=== PATIENT | female | born 1995 | race African-American/Black ===

== ENCOUNTER 2016-10-09 13:44 | Emergency (ER) | payer SELFPAY ==
[~2016-10-09] VITALS: Ht 147.3 cm; Wt 75.0 kg
[~2016-10-09 13:44] MED LIST: AMOX875T PO
[2016-10-09 13:46] VITALS: BP 120/74; PULSE 90; RESP 16; TEMP 99.7; O2SAT 96
[2016-10-09 14:30] LABS: BACTERIA, URINE OCC /hpf; BLOOD, URINE NEG (NEG); COMMENT (UR) CULTURE INDICATED; CULTURE IF INDICATED CULTURE INDICATED; GLUCOSE,URINE NEG (NEG); KETONE, URINE NEG (NEG); MUCUS URINE MANY /lpf (OCC); NITRITE,URINE NEG (NEG); PH, URINE 5.5 (5.0-8.5); SQUAMOUS EPITHELIAL CELL URINE 7 /hpf (0-5); URINE COLOR YELLOW (YELLW/STRAW)
[2016-10-09] MEDS ORDERED: METR-1 PO (14:50)
[2016-10-09] MEDS ORDERED: DOXY100C PO (14:50)
--- NOTE | 2016-10-09 14:56 | PD ---
HPI . Vaginal pain Chief Complaint: Complaint Time Seen by Provider: 14:39 Travel History International Travel<30 days: No Contact w/Intl Traveler<30days: No Traveled to known affect area: No History of Present Illness HPI Patient presents with a three-day history of dysuria, vaginal discomfort and discharge. She denies fever. She denies vomiting or diarrhea. She denies change in appetite. PFSH Past Medical History Medical History: Denies Significant Hx Diminished Hearing: No Tetanus Vaccination: < 5 Years ?: Unknown LMP: 08/2016 : 1 Para: 0 : 1 Past Surgical History Gynecologic Surgery: Yes (incomplete ) Social History Alcohol Use: Yes (OCCASIONALLY) Tobacco Use: Yes (OCCASIONALLY) Substance Use: Yes (MARIJUANA) Allergies-Medications (Allergen,Severity, Reaction): Coded Allergies: No Known Allergies (Unverified , 10/09/16) Reported Meds & Prescriptions Reported Meds & Active Scripts Active No Active Prescriptions or Reported Medications Review of Systems Except as stated in HPI: all other systems reviewed are Neg General / Constitutional: No: Fever, Chills Gastrointestinal: No: Nausea, Vomiting, Diarrhea, Abdominal Pain Genitourinary: Positive: Dysuria, Discharge, No: Pelvic Pain, Dysmenorrhea Physical Exam Narrative GENERAL: Healthy-appearing young woman in no acute distress SKIN: Warm and dry. HEAD: Atraumatic. Normocephalic. EYES: Pupils equal and round. ENT: No nasal bleeding or discharge. Mucous membranes pink and moist. NECK: Trachea midline. CARDIOVASCULAR: Regular rate and rhythm. RESPIRATORY: No accessory muscle use. GASTROINTESTINAL: Abdomen soft, non-tender, nondistended. : She has a yellow purulent discharge all over her external genitalia. She does have bilateral adnexal tenderness and cervical motion tenderness. MUSCULOSKELETAL: No obvious deformities. No edema. NEUROLOGICAL: Awake and alert. No obvious cranial nerve deficits. Motor grossly within normal limits. Normal speech. PSYCHIATRIC: Appropriate mood and affect; insight and judgment normal. Data Data Last Documented VS Vital Signs Date Time Temp Pulse Resp B/P Pulse Ox O2 Delivery O2 Flow Rate FiO2 10/09/16 14:39 16 10/09/16 13:46 99.7 90 120/74 96 Room Air Orders Urinalysis - C+S If Indicated (10/09/16 13:51) Ed Urine Pregnancytest Poc (10/09/16 13:51) Urine Culture (10/09/16 13:57) Gc And Chlamydia Pcr (10/09/16 14:46) Wet Prep Profile (10/09/16 14:46) Rocephin 250mg Vial Im X 1 (10/09/16 15:00) Lidocaine 1% Inj (50 Ml) (Xylocaine 1% I (10/09/16 15:00) Labs Laboratory Tests Test 10/09/16 13:57 Urine Color YELLOW Urine Turbidity HAZY Urine pH 5.5 Urine Specific [place] 1.035 Urine Protein 30 mg/dL Urine Glucose (UA) NEG mg/dL Urine Ketones NEG mg/dL Urine Occult Blood NEG Urine Nitrite NEG Urine Bilirubin NEG Urine Urobilinogen 2.0 MG/DL Urine Leukocyte Esterase LARGE Urine RBC 8 /hpf Urine WBC 26 /hpf Urine Squamous Epithelial 7 /hpf Cells Urine Bacteria OCC /hpf Urine Mucus MANY /lpf Microscopic Urinalysis Comment CULTURE INDICATED MDM Medical Decision Making Medical Screen Exam Complete: Yes Emergency Medical Condition: Yes Differential Diagnosis Differential diagnosis includes but is not limited to UTI, pyelonephritis, yeast infection, bacterial vaginosis, PID Narrative Course Patient presents with about a 3 day history of dysuria and vaginal discharge. On exam, she has gonorrhea. That is, she has a purulent discharge. She will be covered for both gonorrhea and chlamydia as well as bacterial vaginosis. Diagnosis Primary Impression: Pelvic inflammatory disease Patient Instructions: General Instructions, Pelvic Inflammatory Disease (ED) Med/Other Pt SpecificInfo: Prescription(s) given Scripts Metronidazole (Flagyl)500 Mg [id number] Mg PO twice a day #10 TAB Ref 0 Prov:Radha Gay MD 10/09/16 Doxycycline Hyclate 100 Mg [id number] Mg PO BID 10 Days Ref 0 Prov:Radha Gay MD 10/09/16 Disposition: 01 DISCHARGE HOME Condition: Stable Radha Gay MD Oct 09, 2016 14:56
[2016-10-09] MEDS ORDERED: cefTRIAXone 250 MG VIAL IM ONE (15:00)
[2016-10-09] MEDS ORDERED: LIDOCAINE HCL 1% 50 ML VIAL IM ONE (15:00)
[2016-10-09 15:30] VITALS: BP 120/71; TEMP 98.1
[2016-10-09 17:20] LABS: CHLAMYDIA PCR NOT DETECTED (NOT DETECT); NEISSERIA PCR NOT DETECTED (NOT DETECT)
== END 2016-10-09 15:30 | disposition home or self-care (01) ==
LOC: NEPE 13:44
DX: N73.9 Female pelvic inflammatory disease, unspecified (principal)
CPT/HCPCS: 81001; 84703; 87086; 87210; 87491; 87591; 96372; 99283; J0696

== ENCOUNTER 2016-10-12 20:00 | Emergency (ER) | payer SELFPAY ==
[~2016-10-12] VITALS: Ht 147.3 cm; Wt 75.0 kg
[~2016-10-12 20:00] MED LIST changes: -AMOX875T PO; +DOXY100C PO; +METR-1 PO
[2016-10-12 20:01] VITALS: BP 132/91; PULSE 69; RESP 16; TEMP 98.6; O2SAT 96
--- NOTE | 2016-10-13 00:15 | PD ---
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 Patient was in the emergency room 4 days ago for vaginal discharge and was diagnosed with PID and treated and sent home on Flagyl and doxycycline. Patient says that she's been taking those medications but then yesterday noticed the sores which are painful. Last unprotected sex was a week and a half ago. No history of STDs in the past. The lab results from her vaginal swabs were reviewed from 4 days ago. GC and chlamydia was negative and urine culture grew mixed cristian. [facility] Past Medical History Narrative Medical List of her past medical history as reviewed from the nursing note. Medical History: Denies Significant Hx Diminished Hearing: No ?: Unknown LMP: 08/24 : 1 Para: 0 : 1 Past Surgical History Surgical History: No Previous Surgery Gynecologic Surgery: Yes (incomplete ) Social History Alcohol Use: Yes (OCCASIONALLY) Tobacco Use: Yes (OCCASIONALLY) Substance Use: Yes (MARIJUANA) Allergies-Medications (Allergen,Severity, Reaction): Coded Allergies: No Known Allergies (Unverified , 10/12/16) Comments List of allergies reviewed from the nursing note. Reported Meds & Prescriptions Reported Meds & Active Scripts Active Acyclovir 800 Mg Tab 800 Mg PO 5 TIMES A DAY 7 Days Flagyl (Metronidazole) 500 Mg Tab 500 Mg PO TWICE A DAY Doxycycline Hyclate 100 Mg Cap 100 Mg PO BID 10 Days Narrative Medication List of her home medications reviewed from the nursing note. Review of Systems Except as stated in HPI: all other systems reviewed are Neg Physical Exam Narrative GENERAL: Awake, alert, no obvious distress SKIN: Warm and dry. HEAD: Atraumatic. Normocephalic. EYES: Pupils equal and round. No scleral icterus. No injection or drainage. ENT: No nasal bleeding or discharge. Mucous membranes pink and moist. NECK: Trachea midline. No JVD. CARDIOVASCULAR: Regular rate and rhythm. No murmur appreciated. RESPIRATORY: No accessory muscle use. Clear to auscultation. Breath sounds equal bilaterally. GASTROINTESTINAL: Abdomen soft, non-tender, nondistended. Hepatic and splenic margins not palpable. : External genital inspection was done. Patient has significant multiple vesicular lesions on the vulva and the labia. These are tender to touch. Some of them are deroofed. There is thick mucous discharge from the vaginal introitus. MUSCULOSKELETAL: No obvious deformities. No clubbing. No cyanosis. No edema. NEUROLOGICAL: Awake and alert. No obvious cranial nerve deficits. Motor grossly within normal limits. Normal speech. PSYCHIATRIC: Appropriate mood and affect; insight and judgment normal. Data Data Last Documented VS Vital Signs Date Time Temp Pulse Resp B/P Pulse Ox O2 Delivery O2 Flow Rate FiO2 10/13/16 02:17 98.2 74 16 151/62 99 10/12/16 20:01 Room Air Orders Urinalysis - C+S If Indicated (10/13/16 00:30) Ed Urine Pregnancytest Poc (10/13/16 00:30) Urine Culture (10/13/16 00:30) Acyclovir (Zovirax) (10/13/16 01:30) Labs Laboratory Tests Test 10/13/16 00:30 Urine Color YELLOW Urine Turbidity HAZY Urine pH 5.5 Urine Specific [place] 1.030 Urine Protein TRACE mg/dL Urine Glucose (UA) NEG mg/dL Urine Ketones TRACE mg/dL Urine Occult Blood SMALL Urine Nitrite NEG Urine Bilirubin NEG Urine Urobilinogen LESS THAN 2.0 MG/DL Urine Leukocyte Esterase LARGE Urine RBC 21 /hpf Urine WBC 20 /hpf Urine Squamous Epithelial 9 /hpf Cells Urine Mucus FEW /lpf Microscopic Urinalysis Comment CULTURE INDICATED MDM Medical Decision Making Medical Screen Exam Complete: Yes Emergency Medical Condition: Yes Medical Record Reviewed: Yes Differential Diagnosis Herpes genitalis Narrative Course 2:16 AM I decided not to repeat the vaginal exam by speculum since she had one done 4 days ago and she has not been sexually active since then. She's been given by mouth acyclovir and a prescription to go home with. I would like to wait for the urine culture before I declare today UTI since her last UA had similar result but they urine culture was mixed cristian/contaminant. Patient will be discharged home. Procedures EKG Prior to Arrival: No Diagnosis Primary Impression: Herpes genitalis in women Referrals: Primary Care Physician 2 days Additional Instructions: Please follow-up with your primary care/[facility] in couple days. Finish the course of the antibiotic that was given to you from the previous ER visit. Fill the prescription and finish the course of the antiviral that has been prescribed to today. Return to the ER if the condition worsens or any other new concerns. No unprotected sex for next 2 weeks. Partners need to be treated. Med/Other Pt SpecificInfo: Prescription(s) given Scripts Acyclovir 800 Mg [id number] Mg PO 5 TIMES A DAY 7 Days Ref 0 Prov:Makenzie Ridley MD 10/13/16 Disposition: 01 DISCHARGE HOME Condition: Stable Makenzie Ridley MD Oct 13, 2016 00:15
[2016-10-13 00:58] LABS: BLOOD, URINE SMALL (NEG); COMMENT (UR) CULTURE INDICATED; CULTURE IF INDICATED CULTURE INDICATED; GLUCOSE,URINE NEG (NEG); KETONE, URINE TRACE mg/dL (NEG); MUCUS URINE FEW /lpf (OCC); NITRITE,URINE NEG (NEG); PH, URINE 5.5 (5.0-8.5); SQUAMOUS EPITHELIAL CELL URINE 9 /hpf (0-5); URINE COLOR YELLOW (YELLW/STRAW)
[2016-10-13] MEDS ORDERED: ACYCLOVIR 800 MG TAB PO ONE (01:30)
[2016-10-13] MEDS ORDERED: ACYC800T PO (02:08)
[2016-10-13 02:17] VITALS: BP 151/62; TEMP 98.2
== END 2016-10-13 02:18 | disposition home or self-care (01) ==
LOC: NEPE 20:00
DX: A60.04 Herpesviral vulvovaginitis (principal); F12.90 Cannabis use, unspecified, uncomplicated; Z72.0 Tobacco use
CPT/HCPCS: 81001; 84703; 87086; 99283